=== PATIENT | female | born 1950 | race Caucasian/White ===

== ENCOUNTER → 2018-09-01 14:19 | Outpatient (CLI) | payer MEDICARE, SELFPAY ==
--- NOTE | 2018-09-01 14:23 | CT_ITS ---
CT lung screening EXAM: CT LUNG LOW DOSE WO CONTRAST HISTORY: ITS.REASON: TOBACCO USE ORDERING PHYSICIAN: Manasa Haines PATIENT AGE: 68 years COMPARISON: None TECHNIQUE: The exam was performed on a GE Light Speed [address] scanner using 2.90 mGy CTDI. A low dose helical CT CHEST was performed on a multi-detector scanner. All CT scans at the facility use one or more dose reduction, viz: automated exposure control, ma/kV adjustment per patient size (including targeted exams where dose is matched to indication, i.e. head), or iterative reconstruction technique. The LDCT was performed in a facility that meets the criteria for the screening program. Data regarding this exam was submitted to ACR which is an approved registry. The order for this exam indicates that it came as a result of a lung cancer screening counseling shard decision-making visit that included all the elements required of such a visit including smoking cessation. The radiologist interpreting this exam meets the CMS criteria for the LDCT lung cancer screening program. The exam is reported using the Lung-RADS classification scale and reported to the ACR registry. NOTE: This study was performed for the specific purposes of lung cancer screening and is not an alternative to diagnostic chest CT. RADIATION DOSE: CTDI vol(CT dose Index-volume) = 2.90mG DLP (Dose Length Product) = 115.68 mGcm FINDINGS: Changes of COPD with mild centrilobular emphysema. A hyperdense nodule present in the right perihilar region within the right upper lobe measuring 12 mm consistent with a granuloma partially calcified. A flat-like fissural nodule is present in the major fissure on the left 6 mm. Prior CABG. Minimal nodularity noted in the right perihilar region 7 mm possibly due to part of the unopacified overlying pulmonary vessel. There are some small nodes in the epigastric region and periportal area nonspecific IMPRESSION: 1. Lung RADS Category: 3, probably benign. Suggest 6 month follow-up with contrast regarding possible right perihilar nodule versus pulmonary artery 2. Other findings: COPD/centrilobular emphysema, old granulomatous disease, small nodes in the periportal region and epigastric area RECOMMENDATIONS: [address] chest without and with contrast follow-up
== END ==
PROVIDERS: PCP Nurse Practitioner Family; Visit Provider Nurse Practitioner Family
DX: Z12.2 Encounter for screening for malignant neoplasm of respiratory organs (principal); Z87.891 Personal history of nicotine dependence

== ENCOUNTER → 2018-09-08 09:01 | Outpatient (CLI) | payer MEDICARE, SELFPAY ==
--- NOTE | 2018-09-08 09:05 | MM_ITS ---
MM Dig screening mamm BI w/CAD CAD Screening COMPARISON: Digital mammograms with CAD 02/23/2014 and additional views right breast 03/23/2014 INDICATION: There is no personal or family history of breast cancer. There has been previous biopsy right breast for benign disease. TECHNIQUE: Standard CC and MLO images were obtained. R2 CAD reviewed. FINDINGS: Scattered fibroglandular densities are seen in both breasts. There is a mole marker right breast. There there are few benign-appearing microcalcifications right breast. There are stable tiny nodular benign-appearing densities upper outer quadrant left breast. There Is a stable benign-appearing density 12:00 position right breast. There is no suspicious lesion and there are no suspicious microcalcifications. IMPRESSION: Fibrofatty parenchyma with no suspicious lesion seen BI-RADS Category: 2 Benign Finding(s) RECOMMENDED FOLLOW-UP: 1YR - 1 YEAR FOLLOW-UP (A letter has been sent to the patient regarding results of the study.)
== END ==
PROVIDERS: PCP Nurse Practitioner Family; Visit Provider Nurse Practitioner Family
DX: Z12.31 Encounter for screening mammogram for malignant neoplasm of breast (principal)
CPT/HCPCS: 77067

== ENCOUNTER → 2019-03-20 09:27 | Outpatient (CLI) | payer MEDICARE, SELFPAY ==
[2019-03-20 10:01] LABS: Blood Urea Nitrogen 9 mg/dL (7-18); Creatinine,Serum 1.19 mg/dL (0.55-1.02); Estimated Glomerular Filt Rate 45 ml/min (>60); GFR (African American) 54 ML/MIN (>60)
--- NOTE | 2019-03-20 10:07 | CT_ITS ---
PROCEDURE: CT CHEST W CON CLINCAL INDICATION: ABNORMAL CT CHEST Follow-up abnormal screening CT, tobacco use, COPD/emphysema. COMPARISON: LUNGSCREEN CT lung screening from 09/01/2018 [facility] MM Dig screening mamm BI w/CAD from 09/08/2018 TECHNIQUE: IV Contrast: 75ml Optiray 350 Axial images obtained with sagittal and coronal reformats. All CT scans at the facility use one or more dose reduction, viz: automated exposure control, ma/kV adjustment per patient size (including targeted exams where dose is matched to indication, i.e. head), or iterative reconstruction technique. FINDINGS: There is a 1.5 cm hypodense nodule in the left lobe of the thyroid gland posteriorly. Ultrasound may provide further evaluation. There has been a prior CABG. Unremarkable aorta and pulmonary arteries. There is prominence of the left ventricular myocardium possibly related to systolic imaging. Left ventricular hypertrophy is also considered. No mediastinal or hilar mass or adenopathy. COPD with centrilobular emphysema. The previously noted right perihilar nodule is slightly smaller at 6 mm previously nearly 10 mm. The nodule all showed showed some hyperdensity previously which is not apparent on today's study. The margins of the nodule however are somewhat irregular and were previously smooth. Just medial to this nodule is an additional nodular opacity measuring 5 mm and could be due to small lymph node. Left-sided fissural nodules unchanged. No new nodules are evident. Upper abdominal images show some mildly prominent periportal lymph nodes measuring up to 2 x 1.8 cm and may be slightly smaller compared to the previous study. There is a nodular opacity in the upper aspect of the right breast measuring approximately 7 mm. Previous mammogram on the right demonstrated benign-appearing nodule in the 12 o'clock region which may correspond to this finding. IMPRESSION: 1. The previously noted partially calcified right perihilar nodule has changed and is slightly smaller with no calcification evident at this time. The margins of the nodule however are somewhat irregular. Suggest short-term CT follow-up in 3 months due to the change in appearance of the nodule. There is a small lymph node just medial to this region. 2. COPD with centrilobular emphysema 3. 1.5 cm left thyroid nodule. Consider ultrasound for further evaluation Dictated by: José Miguel Dickinson MD 03/20/2019 16:46 Electronically signed by José Miguel Dickinson MD in [place] 03/21/2019 07:07
== END ==
PROVIDERS: PCP Family Medicine; Visit Provider Nurse Practitioner
DX: R93.89 Abnormal findings on diagnostic imaging of other specified body structures (principal)
CPT/HCPCS: 36415; 71260; 82565; 84520; Q9967

== ENCOUNTER → 2019-03-31 13:47 | Outpatient (CLI) | payer MEDICARE, SELFPAY ==
--- NOTE | 2019-03-31 13:56 | US_ITS ---
PROCEDURE: US THYROID CLINICAL INDICATION: THYROID NODULE Follow-up thyroid nodule, abnormal CT COMPARISON: CT CHEST W CON from 03/20/2019 FINDINGS: The right lobe is 4.1 x 1.1 x 1.7 cm. There is a well-circumscribed 4 mm nodule in the upper pole, well-circumscribed 8 mm mostly hypoechoic nodule in the lower pole. The left lobe 4.2 x 1.8 x 1.7 cm. There is a well-circumscribed isoechoic nodule in the lower pole at 18 x 12 mm with central decreased echogenicity.. IMPRESSION: Bilateral thyroid nodules. The nodule in the lower pole on the left is a T rads level 3 less than 2.5 cm. Recommend six-month follow-up. Dictated by: José Miguel Dickinson MD 03/31/2019 16:05 Electronically signed by José Miguel Dickinson MD in [place] 03/31/2019 16:05
== END ==
PROVIDERS: PCP Family Medicine; Visit Provider Nurse Practitioner
DX: E04.1 Nontoxic single thyroid nodule (principal)
CPT/HCPCS: 76536

== ENCOUNTER 2020-03-02 21:29 | Observation (INO) | payer MEDICARE, SELFPAY ==
[2020-03-02 21:22] VITALS: BP 158/58; PULSE 65; RESP 22; O2SAT 94; BMI 27.4
--- NOTE | 2020-03-02 21:35 | ECG_ITS ---
APPROVED REPORT Exam: Resting ECG HR:61 bpm ECG Measurements Heart Rate 61 AXES VT 134 P 40 QRSd 118 QRS -7 QT 456 T 198 QTc 459 Conclusion Normal sinus rhythm Incomplete right bundle branch block ST & T wave abnormality, consider inferior ischemia ST & T wave abnormality, consider anterolateral ischemia Abnormal ECG Electronically signed by : Merlin Hardin, 03/03/2020 14:17:45
--- NOTE | 2020-03-02 21:36 | XR_ITS ---
PROCEDURE: XR CHEST PORTABLE Referring Doctor: Dilip Hebert Patient Age:69Y CLINICAL HISTORY: syncopal episode patient has had previous CABG and lumpectomy. Smoker. COMPARISON: CT CT CHEST W CON from 03/20/2019 FINDINGS: AP portable upright chest Lungs well expanded and clear with no active disease but borderline cardiomegaly. Sternotomy CABG. teletypesetter monitor leads are in place. Slight coarsening markings towards right lung base more so the left I believe is within normal limits and similar to previous studies no convincing pneumonia. No pneumothorax. No pleural effusion but chest wall unremarkable Normal pulmonary vascularity. The lungs are clear without infiltrates, suspicious nodules, or pleural effusions. No acute bony abnormalities. IMPRESSION: Nothing definitely acute Lungs appear clear. . CABG. Heart upper normal size Dictated by: Thee Sandoval MD 03/03/2020 21:12 Thee Sandoval MD in [place] 03/03/2020 21:12
[2020-03-02 21:49] LABS: Basophils # 0.1 K/mm3 (0-0.2); Basophils % 0.8 % (0.1-2.0); Eosinophils # 0.2 K/mm3 (0.0-0.4); Eosinophils % 1.8 % (0.1-12.0); Hematocrit 47.3 % (37.0-47.0); Hemoglobin 15.4 g/dL (12.2-16.2); Lymphocytes # 2.6 K/mm3 (0.7-4.5); Lymphocytes % 26.7 % (10-50); Mean Corpuscular HGB Conc 32.5 g/dL (31.8-35.4); Mean Corpuscular Hemoglobin 30.2 pg (27.0-31.2); Mean Corpuscular Volume 92.8 fl (81-99); Mean Platelet Volume 8.8 fl (7.4-10.4); Monocytes # 0.5 K/mm3 (0.1-1.0); Monocytes % 5.3 % (1.7-9.3); Neutrophils # 6.4 K/mm3 (1.8-7.8); Neutrophils % 65.5 % (37.0-80.0); Platelet Count 214 K/mm3 (142-424); Red Blood Count 5.09 M/mm3 (4.20-5.40); Red Cell Distribution Width 14.6 % (11.5-17.5); White Blood Count 9.7 K/mm3 (4.8-10.8)
[2020-03-02 21:57] VITALS: BP 169/66; PULSE 64; RESP 16; O2SAT 93
--- NOTE | 2020-03-02 22:07 | HMH.EDSYNC ---
ED Disposition Clinical Impression: Syncope Qualifiers: Syncope type: unspecified Qualified Code(s): R55 - Syncope and collapse Disposition: Admitted as Observation Condition on Discharge: Good - Critical Care Critical Care Time: No Attestation: On 03/02/20, the high probability of a clinically significant, sudden or life threatening deterioration of the following system(s) required my full and direct attention, intervention and personal management. The time I documented below is in addition to time spent performing reported procedures but includes the following listed in this critical care notation. Medical Decision Making - Medical Records Medical records reviewed: Yes: I reviewed the patient's medical records. - Ming Inquiry Pt receiving controlled substance: No Vital Signs: 03/02/20 21:22 03/02/20 21:57 03/02/20 22:45 Pulse Rate [Right Brachial] 65 64 67 Respiratory Rate 22 16 18 Blood Pressure [Right Arm] 158/58 H 169/66 H 161/65 H Blood Pressure Mean [Right Arm] 91 100 97 Blood Pressure Source [Right Arm] Automatic Cuff Blood Pressure Position [Right Arm] Sitting 02 Sat by Pulse Oximetry 94 L 93 L 96 Oxygen Delivery Method Room Air Room Air Room Air - Lab Data Lab results reviewed: Yes: I reviewed the patient's lab results. Lab Results 03/02/20 21:10: Sodium 140, Potassium 3.5, Chloride 104, Carbon Dioxide 27, Anion Gap 12.5, BUN 14, Creatinine 1.10 H, Estimated Creat Clear 58, Estimated GFR 49 L, Est GFR ( Amer) 59, Glucose 137 H, Calcium 9.7, Troponin I 0.03, NT-Pro-B Natriuret Pep 816 H 03/02/20 21:10: WBC 9.7, RBC 5.09, Hgb 15.4, Hct 47.3 H, MCV 92.8, MCH 30.2, MCHC 32.5, RDW 14.6, Plt Count 214, MPV 8.8, Neut % (Auto) 65.5, Lymph % (Auto) 26.7, [place] % (Auto) 5.3, Eos % (Auto) 1.8, Baso % (Auto) 0.8, Neut # (Auto) 6.4, Lymph # (Auto) 2.6, [place] # (Auto) 0.5, Eos # (Auto) 0.2, Baso # (Auto) 0.1 03/02/20 21:10: Total Bilirubin 0.6, Direct Bilirubin 0.3, Conjugated Bilirubin 0.0, Indirect Bilirubin 0.3, Unconjugated Bilirubin 0.3, AST 53 H, ALT 43, Alkaline Phosphatase 164 H, Total Protein 7.8, Albumin 4.4 03/02/20 21:10: SARS-CoV-2 IgG Ab (Rapid) Negative, SARS-CoV-2 IgM Ab (Rapid) Negative Result diagrams: 03/02/20 21:10 03/02/20 21:10 Orders (Tests/Meds): ED MEDICATIONS Generic Name Dose Route Start Last Admin Trade Name Freq PRN Reason Stop Dose Admin Sodium Chloride 1,000 mls @ 999 mls/hr 03/02/20 22:45 Sod Chlor 0.9% 1000ml Bag IV 03/02/20 23:45 .Q1H1M CLEMENTINE ORDERS Category Date Time Status XR chest portable Stat Exams 03/02/20 21:36 Taken Troponin I Q3H Lab 03/03/20 00:45 Ordered Troponin I Q3H Lab 03/03/20 03:45 Ordered UA [Urinalysis and Microscopic] Stat Lab 03/02/20 22:11 Ordered - Radiology Data #1 Image(s): Chest Image Reviewed: Yes I reviewed the patient's radiology image Preliminary Findings: Abnormal (cm) - ECG Data Tracing #1 Normal Sinus Rhythm: Yes Ischemic changes: non-specific ST-T wave changes, t wave inversions - Physician Consults Physician Consulted: chente Reason -: Admission - JAMES Score for Non-Stemi Age of Patient: 70-79 years old Heart Rate: 50-69 bpm Systolic Blood Pressure: 140-159 mmHg Serum Creatinine: 0.80-1.19 mg/dl CHF Killip Class: I-No CHF Other Risk Factors: None Non-Stemi Risk Score: 109 Syncope HPI - General Chief Complaint: Syncope Stated Complaint: SYNCOPE Time Seen by Provider: 03/02/20 21:45 Mode of Arrival: EMS Source of Information: Patient, EMS, Medical Record Limitations: No Limitations Description of Symptoms (Recalled from ER Triage Doc. by RN): PATIENT STATES SHE WAS AT A [place] E[place] TODAY WHEN SHE STARTED HAVING STOMACH CRAMPS. STATES SHE VOMITED AND AFTERWARD FELT BETTER. SHE THEN GOT UP AND WALKED OUTSIDE, SAT IN A CHAIR AND PASSED OUT. PATIENT STATES SOMEONE WITH HER SAID SHE WAS OUT FOR APPROX 5 MINUTES. SHE ALSO REPORTS THE DAY BEFORE SHE HAD PAIN IN BACK OF HER
[2020-03-02 22:12] LABS: Anion Gap 12.5 mEq/L (5-15); Blood Urea Nitrogen 14 mg/dl (7-17); Calcium 9.7 mg/dl (8.4-10.2); Carbon Dioxide 27 mmol/L (22.0-30.0); Chloride 104 mmol/L (98-107); Creatinine Clearance Estimated 58 mL/min (50-200); Estimated Glomerular Filt Rate 49 ml/min (>60); GFR (African American) 59 ML/MIN (>60); Glucose 137 mg/dl (74-100); Potassium 3.5 mmoL/L (3.5-5.1); Sodium 140 mmol/L (136-145)
[2020-03-02 22:21] LABS: Alanine Aminotransferase 43 U/L (12-78); Albumin Level 4.4 g/dl (3.5-5.0); Alkaline Phosphatase 164 U/L (38-126); Aspartate Amino Transferase 53 U/L (14-36); Bilirubin,Direct 0.3 mg/dl (0.0-0.4); Bilirubin,Indirect 0.3 mg/dL (0.0-0.9); Bilirubin,Total 0.6 mg/dl (0.2-1.3); Bilirubin,Unconjugated 0.3 mg/dL (0.0-1.1); Total Protein,Serum 7.8 g/dl (6.3-8.2)
[2020-03-02 22:25] LABS: NT Pro Brain Natriuretic Pep. 816 pg/mL (0-125); Troponin I 0.03 ng/ml (0.00-0.034)
[2020-03-02 22:35] LABS: Coronavirus 19 IgG Antibody Negative (Negative); Coronavirus 19 IgM Antibody Negative (Negative)
[2020-03-02 22:45] VITALS: BP 161/65; PULSE 67; RESP 18; O2SAT 96
[2020-03-02 23:15] VITALS: BP 169/69; PULSE 73; RESP 14; TEMP 36.6; O2SAT 95
--- NOTE | 2020-03-02 23:36 | PC.NURSE ---
PT ARRIVED TO THE FLOOR VIA W/C FROM ED W/STAFF AT [id number]
[2020-03-03] VITALS: BP 174/53; PULSE 80; PULSE 81; RESP 20; TEMP 36.6; O2SAT 96; BMI 22.8
[2020-03-03 00:40] VITALS: O2SAT 98
[2020-03-03 00:45] LABS: Microscopic, Urine URINE MICROSCOPIC (MICROSCOPIC)
[2020-03-03 01:07] LABS: Appearance,Urine CLEAR (Clear); Bilirubin,Urine Negative (Negative); Blood, Urine Negative (Negative); Color,Urine YELLOW (Yellow); Glucose,Urine (UA) Negative (Negative); Ketones,Urine Negative (Negative); Leukocyte Esterase,Urine Negative (Negative); Nitrate,Urine Negative (Negative); PH,Urine 6.5 (5.0-8.5); Protein,Urine Negative (Negative); Urobilinogen,Urine 0.2 EU/dl (0.2)
[2020-03-03 01:12] LABS: Amorphous Sediment,Urine Trace /lpf
[2020-03-03 01:20] LABS: Troponin I 0.02 ng/ml (0.00-0.034)
[2020-03-03 04:00] VITALS: BP 139/59; PULSE 60; PULSE 69; RESP 20; TEMP 36.5; O2SAT 90
[2020-03-03 04:20] LABS: Basophils # 0.1 K/mm3 (0-0.2); Basophils % 0.6 % (0.1-2.0); Eosinophils # 0.1 K/mm3 (0.0-0.4); Eosinophils % 0.7 % (0.1-12.0); Hematocrit 40.1 % (37.0-47.0); Lymphocytes # 1.6 K/mm3 (0.7-4.5); Lymphocytes % 16.9 % (10-50); Mean Corpuscular HGB Conc 32.7 g/dL (31.8-35.4); Mean Corpuscular Hemoglobin 30.1 pg (27.0-31.2); Mean Corpuscular Volume 91.9 fl (81-99); Mean Platelet Volume 8.1 fl (7.4-10.4); Monocytes # 0.4 K/mm3 (0.1-1.0); Monocytes % 4.4 % (1.7-9.3); Neutrophils # 7.1 K/mm3 (1.8-7.8); Neutrophils % 77.4 % (37.0-80.0); Platelet Count 180 K/mm3 (142-424); Red Blood Count 4.37 M/mm3 (4.20-5.40); Red Cell Distribution Width 14.5 % (11.5-17.5); White Blood Count 9.1 K/mm3 (4.8-10.8)
[2020-03-03 04:22] LABS: Hemoglobin 13.1 g/dL (12.2-16.2)
[2020-03-03 04:32] LABS: Anion Gap 8.4 mEq/L (5-15); Blood Urea Nitrogen 11 mg/dl (7-17); Carbon Dioxide 23 mmol/L (22.0-30.0); Chloride 113 mmol/L (98-107); Chol/HDL Ratio 6.1 (1-3.5); Cholesterol 232 mg/dl (140-200); Creatinine Clearance Estimated 50 mL/min (50-200); Estimated Glomerular Filt Rate 71 ml/min (>60); GFR (African American) 86 ML/MIN (>60); Glucose 112 mg/dl (74-100); HDL Cholesterol 38 mg/dl (40-60); Potassium 4.4 mmoL/L (3.5-5.1); Sodium 140 mmol/L (136-145); Triglycerides 132 mg/dl (30-150); VLDL Cholesterol 26 mg/dL (0-40)
[2020-03-03 04:42] LABS: Direct LDL Cholesterol 160.59 mg/dL (100-129)
[2020-03-03 04:43] LABS: Troponin I 0.02 ng/ml (0.00-0.034)
--- NOTE | 2020-03-03 04:43 | PC.NURSE ---
Pt is A&O x4. Lung sounds clear t/o, diminished lung sounds in right upper lobe. Pt has had no c/o dizziness or weakness. Pt requires standby assistance when ambulating to bathroom. Pt has been incontinent of bowels x1 this shift. Pt states it's from the food at the wedding earlier, I have diverticulitis this happens a lot Pt has urinated clear, yellow urine this shift. DNI paperwork signed and placed in pt's chart. Call light within reach. No other complaints or acute changes at this time. Will continue to monitor.
[2020-03-03 04:46] LABS: Calcium 8.6 mg/dl (8.4-10.2)
--- NOTE | 2020-03-03 07:40 | HMH.HPDC ---
General - General Admission date:: 03/02/20 Discharge date: 03/03/20 *Admission Date: 03/03/20 *Chief complaint: Syncope *History of present illness: 69-year-old female with history of coronary artery bypass grafting approximately 10 years ago presented to the emergency department after syncopal event. Patient went to a family wedding yesterday where she ate karen Maharaj. Almost immediately after finishing her meal she noticed onset of abdominal cramps which she states is fairly normal for her due to a history of diverticulosis. Patient went to her sister's house as she was afraid she was going to have an incontinence accident. Patient went to the bathroom and became diaphoretic and vomited in addition to having diarrhea. Patient felt like she needed some fresh air so she went outside and sat down where she lost consciousness. Patient sister believes the patient was unconscious for approximately 1 to 5 minutes. A neighbor was contacted to help get the patient to a car and she was brought to the emergency department. Patient had regained consciousness by the time she was in the emergency department. She also reported diaphoresis prior to her syncopal event. She denied chest pain, chest heaviness, neck pain, back pain, shortness of breath. Patient's work-up in the emergency department was significant only for a troponin of 0.03 as well as an EKG that showed diffuse T wave inversions. There is no prior EKG for comparison. Decision was made to keep the patient for monitoring of arrhythmia and rule out of [place]. [facility] History Medical History: Reports:: Coronary Artery Disease, Hypertension Denies:: Cancer, Diabetes Mellitus Type 1, Diabetes Mellitus Type 2, Internal Pacemaker, Lung Disease, MRSA, Seizures *Have you ever received a pneumonia vaccine?: Yes *Have you received a flu vaccine this season?: No Other Medical History: Denies: Blood Transfusion Reaction Other Surgeries: Yes: Cholecystectomy, Diagnostic Lap, Hysterectomy-Total. No: Pacemaker Amputation: No - *Social History Last grade of school completed: High school graduate Smoking Status: Current every day smoker Tobacco Type: cigarettes # Packs/Day (cigarettes): 1 Alcohol Intake: current Alcohol Intake Frequency:: holidays/special occasions only *Occupational Status:: retired *Travel in the last 8 weeks: None Family Hx:: Anemia, Cancer, Coronary Artery Disease, Diabetes, Stroke Review of Systems - Constitutional Denies anorexia, Denies body ache(s), Denies chills, Denies lack of energy - *Cardiovascular Denies chest pain, Denies chest pain at rest, Denies leg pain with activity, Denies excessive sweating, Denies shortness of breath with activity, Denies generalized swelling, Denies irregular heart rhythm - *Respiratory Denies change in phlegm color, Denies chest congestion, Denies cough - *Gastrointestinal Reports abdominal pain, Reports cramping, Reports loose stools, Denies belching, Denies bloating - *Genitourinary Denies painful urination - *Musculoskeletal Denies abnormal walking - Integumentary/Breasts Denies acne - *Neurologic Denies abnormal speech, Denies localized weakness, Denies headache(s), Denies seizure-like activity Exam Vital signs and Labs for Last 24 Hours: Temp Pulse Resp BP Pulse Ox 97.7 F 69 20 139/59 L 90 L 03/03/20 04:00 03/03/20 04:00 03/03/20 04:00 03/03/20 04:00 03/03/20 04:00 Laboratory Results - last 24 hr 03/02/20 21:10: Sodium 140, Potassium 3.5, Chloride 104, Carbon Dioxide 27, Anion Gap 12.5, BUN 14, Creatinine 1.10 H, Estimated Creat Clear 58, Estimated GFR 49 L, Est GFR ( Amer) 59, Glucose 137 H, Calcium 9.7, Troponin I 0.03, NT-Pro-B Natriuret Pep 816 H 03/02/20 21:10: WBC 9.7, RBC 5.09, Hgb 15.4, Hct 47.3 H, MCV 92.8, MCH 30.2, MCHC 32.5, RDW 14.6, Plt Count 214, MPV 8.8, Neut % (Auto) 65.5, Lymph % (Auto) 26.7, [place] % (Auto) 5.3, Eos % (Auto) 1.8, Baso % (Auto) 0.8, Neut # (Auto) 6.4, Lymph #
[2020-03-03 08:00] VITALS: BP 164/79; PULSE 80; PULSE 95; RESP 16; TEMP 36.6; O2SAT 95
--- NOTE | 2020-03-03 08:15 | P.CONPHA_ITS ---
[facility] Pharm[facility] VTE Monitoring - Patient Demographics Admission date: 03/02/20 Report Date: 03/03/20 Time: 08:15 Allergies/Adverse Reactions: Patient Allergies codeine [CODEINE] Allergy (Unknown, Verified 09/12/18 11:26) FACE SWELLING iodine [IODINE] Allergy (Unknown, Verified 09/12/18 11:26) I-RASH Height: 1.63 m Weight: 60.526 kg Patient Problems: Current Active Problems Syncope (Acute) Hypertension (Chronic) Cigarette smoker (Chronic) Hyperlipidemia (Chronic) Abdominal cramping (Acute) Diverticulosis, sigmoid (Chronic) - VTE Risk Labs: VTE Related Lab Results Hgb 13.1 g/dL (12.2-16.2) D 03/03/20 04:00 Hct 40.1 % (37.0-47.0) 03/03/20 04:00 Plt Count 180 K/mm3 (142-424) 03/03/20 04:00 BUN 11 mg/dl (7-17) 03/03/20 04:00 Creatinine 0.80 mg/dl (0.52-1.04) D 03/03/20 04:00 Estimated Creat Clear 50 mL/min (50-200) 03/03/20 04:00 - Prophylaxis VTE Prophylaxis Ordered?: Yes Types of VTE Prophylaxis: TEDS Knee High Location of Applied Device: Bilateral Lower Extremeties - VTE Diagnosis Confirmed Treatment or plan recommended: Continue Current Treatment
--- NOTE | 2020-03-03 09:26 | HMH.PHAINT ---
DISCHARGE COUNSELING COMPLETED ON PATIENT. TWO NEW PRESCRIPTIONS FOR LISINOPRIL AND SIMVASTATIN. BOTH WERE SENT TO [facility]. PATIENT VERBALIZED UNDERSTANDING AND HAD NO QUESTIONS AT THIS TIME. -RANDI ENGLISH, BRIAND
== END 2020-03-03 11:11 | disposition home or self-care (01) ==
LOC: ER 22:37 → 2ND 22:42
PROVIDERS: Admitting Provider Family Medicine; Emergency Provider Emergency Medicine; PCP Family Medicine; Visit Provider Family Medicine
DX: R55 Syncope and collapse (principal); K57.30 Diverticulosis of large intestine without perforation or abscess without bleeding; I25.10 Atherosclerotic heart disease of native coronary artery without angina pectoris; I10 Essential (primary) hypertension; E78.5 Hyperlipidemia, unspecified; Z72.0 Tobacco use; Z95.1 Presence of aortocoronary bypass graft; R06.9 Unspecified abnormalities of breathing; Z79.899 Other long term (current) drug therapy
CPT/HCPCS: 36415; 71045; 80048; 80061; 80076; 81001; 83735; 83880; 84484; 85025; 86328; 93005; 96365; 99284; G0378

== ENCOUNTER → 2020-08-16 09:16 | Outpatient (CLI) | payer MEDICARE, SELFPAY ==
--- NOTE | 2020-08-16 | CA_ITS ---
APPROVED REPORT EXAM: Comprehensive 2D, Doppler, and color-flow Echocardiogram Television Audio Engineer: Marilyn Blair RT(R) Ht: 5 ft 4 in Wt: 130lbs BSA: 1.63 BP: 164/79 mmHg Indications: MRSA, Seizures, CAD, HTN, DM, pacemaker 2D Dimensions LVOT 1.82 cm (M/F) 1.5-2.5 LVEF (Sommers's) 68.30 % F: 54 - 74 LV Volume 86.80 mL F: 46 - 106 LV Volume Index 53.25 mL/m2 F: 29 - 61 LA Volume 30.00 mL LA Volume Index 18.40 mL/m2 (M/F) 16-34 M-Mode Dimensions RVDd 2.00 cm (0.9-2.6) LA Diam 4.02 cm (1.9-4.0) LVDd 4.97 cm (3.5-5.7) Ao Diam 2.69 cm (2.0-3.7) LVDs 3.21 cm (3.5-5.7) IVSd 0.89 cm (0.6-1.1) PWd 0.89 cm (0.6-1.1) EF (Teich) 64.60% FS 35.40% EDV (Teich) 116.60 mL ESV (Teich) 41.30 mL LV Diastology E Decel Time 167.00 (160-240 msec) E/A Ratio 1.5 MED E' 6.60 (< 7 cm/sec) E'/MED E' Ratio 25.14 (>14) LAT E' 8.50 (<10 cm/sec) E/LAT E' Ratio 19.52 (>14) Aortic Valve LVOT Max 145.00 (70-110 cm/s) LVOT VTI 29.71 cm AoV Peak Eddie. 169.00 (50-130 cm/s) AI PHT 578.00 ms AO Peak GR. 11.50 mmHg AO Mean GR. 5.70 (<5 mmHg) AO VTI 32.59 (18-25 cm) NEO (VTI) 2.37 (2.5-4.5 cm2) Mitral Valve MV E Max Eddie. 166.00 (40-130 cm/s) MV A Velocity 110.00 (40-130 cm/s) E/A Ratio 1.51 MV Decel. Time 167.00 (160-240 ms) MV PHT 49.00 ms Left Ventricle Mildly enlarged, left ventricle is normal size, mild concentric left ventricular hypertrophy, visually estimated ejection fraction 55% with no regional wall motion abnormality, grade 2 diastolic dysfunction seen with tissue Doppler evidence of raise left atrial pressure. Right Ventricle Right atrium and right ventricle are normal size and contractility. There is a pacemaker lead seen right atrium and right ventricle. Aortic Valve Aortic valve is thickened and calcified leaflet chordae display good mobility, there is no aortic stenosis, there is mild aortic insufficiency. Mitral Valve Mitral valve leaflets are minimally thickened, there is mitral regurgitation present which is difficult to quantify, is likely in moderate range. There is no mitral stenosis. Tricuspid Valve Tricuspid valve grossly normal, there is mild tricuspid regurgitation, tricuspid regurgitation jet velocity is inadequate for calculation of the right ventricular systolic pressure. Pulmonic Valve Pulmonic valve is poorly visualized. Great Vessels Aortic root is normal size. Pericardium No significant pericardial effusion noted. Conclusion 1. Mildly enlarged left atrium, normal left ventricular size, mild concentric left ventricular hypertrophy, visually estimated ejection fraction 55% with no regional wall motion abnormality, grade 2 diastolic dysfunction seen with tissue Doppler evidence of raise left atrial pressure. 2. Thickened and calcified aortic valve with mild aortic insufficiency. 3. Moderate mitral and mild tricuspid regurgitation. 4. No significant pericardial effusion noted. Electronically signed by : Joaquin Baig, 08/16/2020 14:30:11
--- NOTE | 2020-08-16 | US_ITS ---
APPROVED REPORT Exam Type: Lower Extremity Segmental Pressures Perch Machine Inspector: Manasa Dubon RVT Indications Claudication: Bilaterally Rest Pain: Bilaterally Current Smoker CAD CLAUDICATION RADHA Risk Factors Hypertension CAD Hyperlipidemia Cardiac Disease Current Smoker Pressures/Indices Right Indices Left Indices Brachial 160.00 mmHg Brachial 150.00 mmHg Low Thigh 100.00 mmHg 0.63 Low Thigh 154.00 mmHg 0.96 Calf 88.00 mmHg 0.55 Calf 146.00 mmHg 0.91 Ankle(PT) 85.00 mmHg 0.53 Ankle(PT) 148.00 mmHg 0.93 Ankle(DP) 82.00 mmHg 0.51 Ankle(DP) 136.00 mmHg 0.85 Digit 56.00 mmHg 0.35 Digit 95.00 mmHg 0.59 Findings RT KARINA:0.5 LT KARINA:0.93 RT TBI:0.35 LT TBI:0.59 DAMPANED WAVEFORMS ON THE RIGHT DAMPENED PULSES ON THE RIGHT Conclusion RT KARINA:0.5 LT KARINA:0.93 RT TBI:0.35 LT TBI:0.59 DAMPANED WAVEFORMS ON THE RIGHT DAMPENED PULSES ON THE RIGHT MODERATE RIGHT ARTERIAL DISEASE Critical Notification Physician Notified Date: 08/16/2020 Time: 10:02 Physician Name: Ashley SOLARES OFFICE Electronically signed by : José Miguel Dickinson MD 08/16/2020 16:22:40
== END ==
PROVIDERS: PCP Family Medicine; Visit Provider Family Medicine
DX: I70.213 Atherosclerosis of native arteries of extremities with intermittent claudication, bilateral legs (principal); I25.10 Atherosclerotic heart disease of native coronary artery without angina pectoris; R60.0 Localized edema; F17.210 Nicotine dependence, cigarettes, uncomplicated
CPT/HCPCS: 93306; 93923

== ENCOUNTER → 2021-11-01 10:39 | Outpatient (CLI) | payer MEDICARE, SELFPAY | PROVIDERS: Visit Provider Ophthalmology | DX: Z01.812 Encounter for preprocedural laboratory examination (principal); Z20.822 Contact with and (suspected) exposure to COVID-19 | CPT/HCPCS: C9803; U0003; U0005 ==

== ENCOUNTER 2021-11-04 06:36 | Day surgery (SDC) | payer MEDICARE, SELFPAY ==
[2021-10-31 15:05] VITALS: BMI 22.3
[2021-11-04 07:54] VITALS: BP 172/74; PULSE 70; RESP 16; TEMP 36.6; O2SAT 98
[2021-11-04 09:01] VITALS: BP 189/84; PULSE 66; RESP 16; O2SAT 98
[2021-11-04 09:06] VITALS: BP 181/74; PULSE 67; RESP 16; O2SAT 96
[2021-11-04 09:11] VITALS: BP 163/77; PULSE 64; RESP 16; O2SAT 100
[2021-11-04 09:16] VITALS: BP 168/79; PULSE 64; RESP 16; O2SAT 100
[2021-11-04 09:17] VITALS: BP 156/80; PULSE 70; RESP 16; TEMP 36.5; O2SAT 97
== END 2021-11-04 09:41 | disposition home or self-care (01) ==
LOC: OR 06:38
PROVIDERS: PCP Family Medicine; Visit Provider Ophthalmology
DX: H26.9 Unspecified cataract (principal); I10 Essential (primary) hypertension; E78.00 Pure hypercholesterolemia, unspecified
CPT/HCPCS: 66984; V2632

== ENCOUNTER → 2021-11-15 10:20 | Outpatient (CLI) | payer MEDICARE, SELFPAY | PROVIDERS: PCP Nurse Practitioner Family; Visit Provider Ophthalmology | DX: Z01.812 Encounter for preprocedural laboratory examination (principal); Z20.822 Contact with and (suspected) exposure to COVID-19 | CPT/HCPCS: C9803; U0003; U0005 ==

== ENCOUNTER 2021-11-18 08:13 | Day surgery (SDC) | payer MEDICARE, SELFPAY ==
[2021-11-13 13:43] VITALS: BMI 22.1
[2021-11-18] VITALS (7 sets, daily range): BP systolic 159–182; BP diastolic 69–82; PULSE 66–74; RESP 18–20; TEMP 36.6–36.7; O2SAT 94–98
== END 2021-11-18 09:55 | disposition home or self-care (01) ==
LOC: OR 08:15
PROVIDERS: PCP Family Medicine; Visit Provider Ophthalmology
DX: H26.9 Unspecified cataract (principal); I10 Essential (primary) hypertension; E78.00 Pure hypercholesterolemia, unspecified
CPT/HCPCS: 66984; V2632

== ENCOUNTER → 2022-01-30 08:45 | Outpatient (CLI) | payer MEDICARE, SELFPAY ==
--- NOTE | 2022-01-30 08:46 | CA_ITS ---
FINAL REPORT TECHNIQUE: Duplex color Doppler with spectral analysis performed of the lower extremity. CLINICAL HISTORY: claudication in right calf, HTN, HLD, DM, hx of CABG, smoker. FINDINGS: RIGHT LOWER EXTREMITY: Velocities cm/sec: BUSINESS CONTINUITY COORDINATOR: 73 SFA Mid: 102 SFA Dist: 69 CIGAR HEAD HOLER proximal: 11 CIGAR HEAD HOLER Mid: 10 CIGAR HEAD HOLER distal: 10 EMMA Mid: 15 Peroneal proximal: 22 Peroneal mid: 21 Peroneal distal: 20 Waveforms are monophasic throughout. Plaque is seen in the mid femoral artery. There is occlusion of the distal femoral artery with reconstitution in the popliteal artery. 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 These findings were called to Dr. Busch by the cardiology technologist. Reviewed, Interpreted and Dictated by Gallo Kang III, MD Transcribed by Delmar Gandhi Authenticated and [facility]
--- NOTE | 2022-01-30 09:57 | XR_ITS ---
FINAL REPORT CLINICAL HISTORY: low back pain with radiation into right leg FINDINGS: LEFT HIP Two views of the left hip including an AP pelvis demonstrate no acute fracture or dislocation. There are mild degenerative changes in both hips. The visualized bony structures are well aligned. There are vascular calcifications. IMPRESSION: Mild degenerative change with no acute bony abnormality. Reviewed, Interpreted and Dictated by Gallo Kang III, MD Transcribed by Haether Barajas Authenticated and [facility]
--- NOTE | 2022-01-30 09:57 | XR_ITS ---
FINAL REPORT CLINICAL HISTORY: low back pain with radiation into right leg FINDINGS: LUMBAR SPINE Three views were obtained. There is no acute fracture. There is no malalignment. There is mild rightward curvature. There are mild and moderate degenerative changes with osteophytes. There is facet arthropathy in the lower lumbar spine. There are vascular calcifications. IMPRESSION: Mild and moderate degenerative changes as described. Reviewed, Interpreted and Dictated by Gallo Kang III, MD Transcribed by Heather Barajas Authenticated and [facility]
--- NOTE | 2022-01-30 09:59 | XR_ITS ---
FINAL REPORT CLINICAL HISTORY: LOWER LEG PAIN FINDINGS: RIGHT HIP Two views of the right hip demonstrate no acute fracture or dislocation. There are mild degenerative changes. The visualized bony structures are well aligned. No soft tissue abnormality is seen. IMPRESSION: Mild degenerative change with no acute bony abnormality. Reviewed, Interpreted and Dictated by Gallo Kang III, MD Transcribed by Heather Barajas Authenticated and [facility]
[2022-01-30 10:27] LABS: Basophils # 0.1 K/mm3 (0-0.2); Eosinophils # 0.1 K/mm3 (0.0-0.4); Eosinophils % 1.1 % (0.1-12.0); Hematocrit 42.4 % (37.0-47.0); Hemoglobin 13.9 g/dL (12.2-16.2); Lymphocytes # 1.7 K/mm3 (0.7-4.5); Mean Corpuscular HGB Conc 32.7 g/dL (31.8-35.4); Mean Corpuscular Hemoglobin 31.4 pg (27.0-31.2); Mean Corpuscular Volume 96.1 fl (81-99); Mean Platelet Volume 9.3 fl (7.4-10.4); Monocytes # 0.4 K/mm3 (0.1-1.0); Monocytes % 5.7 % (1.7-9.3); Neutrophils # 5.1 K/mm3 (1.8-7.8); Neutrophils % 69.3 % (37.0-80.0); Platelet Count 210 K/mm3 (142-424); Red Blood Count 4.41 M/mm3 (4.20-5.40); Red Cell Distribution Width 15.1 % (11.5-17.5); White Blood Count 7.4 K/mm3 (4.8-10.8)
[2022-01-30 11:09] LABS: Alanine Aminotransferase 20 U/L (12-78); Albumin Level 3.9 g/dl (3.5-5.0); Albumin/Globulin Ratio 1.6 (1.1-1.8); Alkaline Phosphatase 101 U/L (38-126); Anion Gap 7.9 mEq/L (5-15); Aspartate Amino Transferase 36 U/L (14-36); Bilirubin,Total 0.3 mg/dl (0.2-1.3); Blood Urea Nitrogen 9 mg/dl (7-17); Calcium 8.7 mg/dl (8.4-10.2); Carbon Dioxide 28 mmol/L (22.0-30.0); Chloride 109 mmol/L (98-107); Chol/HDL Ratio 3.9 (1-3.5); Cholesterol 169 mg/dl (140-200); Estimated Glomerular Filt Rate 55 ml/min (>60); GFR (African American) 66 ML/MIN (>60); Globulin 2.4 g/dL (1.3-3.2); Glucose 87 mg/dl (74-100); HDL Cholesterol 43 mg/dl (40-60); Potassium 3.9 mmoL/L (3.5-5.1); Sodium 141 mmol/L (136-145); Total Protein,Serum 6.3 g/dl (6.3-8.2); Triglycerides 187 mg/dl (30-150); VLDL Cholesterol 37 mg/dL (0-40)
[2022-01-30 11:40] LABS: Thyroid Stimulating Hormone 2.15 uIU/mL (0.465-4.68)
== END ==
PROVIDERS: PCP Family Medicine; Visit Provider Family Medicine
DX: I73.9 Peripheral vascular disease, unspecified (principal); M79.604 Pain in right leg; R55 Syncope and collapse; I10 Essential (primary) hypertension; E78.5 Hyperlipidemia, unspecified; M54.50 Low back pain, unspecified
CPT/HCPCS: 36415; 72100; 73502; 80053; 80061; 84443; 85025; 93926

== ENCOUNTER → 2022-02-11 11:40 | Outpatient (CLI) | payer MEDICARE, SELFPAY ==
--- NOTE | 2022-02-11 | CA_ITS ---
APPROVED REPORT Exam: Pharmacologic Technologist: Shawna Noyola, Ht: 5 ft 4 in Wt: 138 lbs BSA: 1.67 m2 HR: 59 bpm BP: 164/54 mmHg Rhythm: NSR, RBBB, LVH, DIFFUSE ST-T ABNS Indications: CP, ABN EKG Medical History Medical History: HTN, Hyperlipidemia Medications: Lisinopril,,,,, RoSUVASTATIN,,,,, Allergies: CODEINE, IODINE Cardiac Risk Factors: HTN, Hyperlipidemia, FHX of CAD, Smoking Stress Test Details Test: LEXISCAN HR Resting HR: 60 bpm Max Heart Rate (APMHR): 148.182845 bpm Max HR Achieved: 85 bpm Target HR (85% APMHR): 125.472449 bpm % of APMHR: 57.43 Recovery HR: 72 bpm BP Resting BP: 164/54 mmHg Max BP: 164/54 mmHg Recovery BP: 158.0/48.0 mmHg ECG Resting ECG: NSR, RBBB, LVH, DIFFUSE ST-T ABNS Clinical Exercise duration: 04:03 min Highest Stage Achieved: Exercise capacity: 1.0 METs Stress ECG Conclusion PT HAD SOA, HEAD DISCOMFORT. NO CP. MILD EXAGGERATION OF BASELINE ABNS NON-DIAGNOSTIC LEXISCAN STRESS. MYOVIEW IMAGES REPORTED SEPARATELY. Test Summary REST 05:19 . . 60 . 164/ 54 . . Stage 1 01:00 . . 81 . . . . Stage 2 01:00 . . 83 . 142/ 58 . . Stage 3 01:00 . . 77 . 155/ 66 . . Stage 4 01:00 . . 78 . . . . Stage 4 01:03 . . 79 . . . Stop exercise at 04:03 RECOVERY 01:00 . . 72 . 156/ 57 . . RECOVERY 02:00 . . 79 . 156/ 57 . . RECOVERY 03:00 . . 71 . 158/ 48 . . RECOVERY 03:32 . . 69 . 158/ 48 . . Electronically signed by : Joaquin Baig MD 02/12/2022 06:26:39
--- NOTE | 2022-02-11 11:40 | NM_ITS ---
APPROVED REPORT Exam: Nuclear Stress Test Indication: short of breath Patient Location: Outpatient Stress Tech: Shawna Noyola MS Tech:RUTH ANN Brooks RT(R)(N) Ht: 5 ft 4 in Wt: 138 lbs Bra Size: b HR: 60 bpm BP: 164/54 mmHg BSA: 1.67 m2 TID: 1.04 BMI: 23.6 History: short of breath Procedure: Patient received a 0.4 mg of intravenous Lexiscan, resting heart rate 60 bpm, resting blood pressure 164/54 mmHg, with Lexiscan maximum heart rate achived was 85 bpm which is Less than 85 % of the maximum predicted heart rate and blood pressure was 164/54 mmHg. With Lexiscan, patient denied any complaint of chest pain. Electrocardiogram Resting electrocardiogram shows sinus rhythm, nonspecific ST-T changes, with Lexiscan there is less than 1.[address] segment depression noted from the baseline EKG. The EKG portion of the Lexiscan is nondiagnostic. Cardiac Stress and Resting SPECT Images: Cardiac Stress and Resting SPECT images were obtained using technetium 99m Myoview 31.3 mCi stress and 10.37 mCi at rest. Gated SPECT for analysis of segmental wall motion and calculation of the ejection fraction also done. Prone images were also obtained. Cardiac stress and rest SPECT images show inferolateral reversible ischemia, computer derived ejection fraction is over 65% with no regional wall motion abnormality, right ventricle is normal size and contractility. Conclusion: 1. The EKG portion of the Lexiscan is nondiagnostic. 2. Scintigraphic evidence of reversible ischemia involving the inferolateral wall, computer derived ejection fraction is over 65% with no regional wall motion abnormality, right ventricle is normal size and contractility. 3. Abnormal Lexiscan Myoview study. Electronically signed by : Joaquin Baig MD 02/12/2022 06:31:22
--- NOTE | 2022-02-11 11:50 | CA_ITS ---
APPROVED REPORT EXAM: Comprehensive 2D, Doppler, and color-flow Echocardiogram Tree Killer: Fiorella Shepard RDCS Ht: 5 ft 4 in Wt: 138lbs BSA: 1.67 BP: 126/53 mmHg Indications: Abnormal ECG, Chest Pain, CAD, Hyperlipidemia, Hypertension/HDD, smoker, cabg 2D Dimensions LVOT 1.71 cm (M/F) 1.5-2.5 M-Mode Dimensions RVDd 1.72 cm (0.9-2.6) LA Diam 3.70 cm (1.9-4.0) LVDd 5.21 cm (3.5-5.7) Ao Diam 3.13 cm (2.0-3.7) LVDs 2.93 cm (3.5-5.7) IVSd 1.51 cm (0.6-1.1) PWd 0.87 cm (0.6-1.1) EF (Teich) 74.60% FS 43.80% EDV (Teich) 130.10 mL ESV (Teich) 33.00 mL LV Diastology E Decel Time 233.00 (160-240 msec) E/A Ratio 0.96 MED E' 4.30 (< 7 cm/sec) E'/MED E' Ratio 25.88 (>14) LAT E' 6.30 (<10 cm/sec) E/LAT E' Ratio 17.67 (>14) Aortic Valve AI PHT 428.00 ms Mitral Valve MV E Max Eddie. 111.00 (40-130 cm/s) MV A Velocity 117.00 (40-130 cm/s) E/A Ratio 0.96 MV Decel. Time 233.00 (160-240 ms) MV PHT 68.00 ms Left Ventricle Left atrium is moderately enlarged, left ventricle is normal size mild concentric left ventricular hypertrophy, estimated ejection fraction 55% with no regional wall motion abnormality, grade 2 diastolic dysfunction seen with tissue Doppler evidence of raise left atrial pressure. Right Ventricle Right atrium and right ventricle are mildly enlarged with normal contractility. Aortic Valve Aortic valve is thickened and calcified without aortic stenosis, there is mild aortic insufficiency. Mitral Valve Mitral valve leaflets have degenerative changes present both anterior posterior mitral leaflet, posterior mitral leaflet is little redundant, there is no mitral stenosis, there is mitral regurgitation present which is likely in severe range. Tricuspid Valve Tricuspid valve grossly normal, there is mild tricuspid regurgitation, tricuspid regurgitation jet velocity is inadequate for calculation of the right ventricular systolic pressure. Pulmonic Valve Pulmonic valve is poorly visualized. Great Vessels Aortic root is normal size. Inferior vena cava is dilated without significant inspiratory collapse. Pericardium No significant pericardial effusion noted. Conclusion 1. Moderately enlarged left atrium, normal left ventricular size, mild concentric left ventricular hypertrophy, estimated ejection fraction 55% with no obvious regional wall motion abnormality, grade 2 diastolic dysfunction seen with tissue Doppler evidence of atrial atrial pressure. 2. Abnormal mitral valve as described above, likely severe mitral regurgitation, if clinically indicated transesophageal echocardiogram is recommended. 3. Mild aortic and tricuspid regurgitation. 4. No significant pericardial effusion. 5. Inferior vena cava is mildly dilated without significant inspiratory collapse. Electronically signed by : Joaquin Baig MD 02/12/2022 06:05:23
--- NOTE | 2022-02-11 11:50 | CA_ITS ---
FINAL REPORT CLINICAL HISTORY: abnormal ekg, carotid bruit, exsmoker, htn FINDINGS: An ultrasound of the carotid arteries was performed. Duplex Doppler evaluation with spectral analysis was performed. The peak systolic velocity of the right common carotid artery is 119 cm/s. The peak systolic velocity of the right internal carotid artery is 117 cm/s and end diastolic velocity 28 cm/s. A moderate amount of plaque is present at the proximal ICA. The right external carotid artery is patent. The right vertebral artery is patent with antegrade flow. ICA/CCA ratio: 1.03 The peak systolic velocity of the left common carotid artery is 126 cm/s. The peak systolic velocity of the left internal carotid artery is 74 cm/s and end diastolic velocity 17 cm/s. A small amount of plaque is present. The left external carotid artery is patent. The left vertebral artery is patent with antegrade flow. ICA/CCA ratio: 0.75 Bilateral patent vertebral arteries with antegrade flow. Note is made of bilateral thyroid nodules measuring up to 17 mm in the left lobe. These are incompletely characterized. IMPRESSION: Less than 50% carotid stenosis bilaterally. Incidental note of bilateral thyroid nodules. Recommend dedicated thyroid ultrasound. Reviewed, Interpreted and Dictated by Reinier Kelley MD Transcribed by Delmar Gandhi Authenticated and [facility]
== END ==
PROVIDERS: PCP Family Medicine; Visit Provider Physician Assistant
DX: Z95.1 Presence of aortocoronary bypass graft (principal); R55 Syncope and collapse
CPT/HCPCS: 78452; 93017; 93306; 93880; A9502; J2785

== ENCOUNTER → 2022-02-28 10:16 | Outpatient (CLI) | payer MEDICARE, SELFPAY ==
[2022-02-28 11:23] LABS: Basophils # 0.1 K/mm3 (0-0.2); Basophils % 1.2 % (0.1-2.0); Eosinophils # 0.1 K/mm3 (0.0-0.4); Eosinophils % 1.7 % (0.1-12.0); Hematocrit 42.3 % (37.0-47.0); Hemoglobin 13.6 g/dL (12.2-16.2); Lymphocytes # 1.5 K/mm3 (0.7-4.5); Mean Corpuscular HGB Conc 32.1 g/dL (31.8-35.4); Mean Corpuscular Hemoglobin 31.3 pg (27.0-31.2); Mean Corpuscular Volume 97.6 fl (81-99); Mean Platelet Volume 9.3 fl (7.4-10.4); Monocytes # 0.3 K/mm3 (0.1-1.0); Monocytes % 5.4 % (1.7-9.3); Neutrophils # 4.4 K/mm3 (1.8-7.8); Neutrophils % 68.6 % (37.0-80.0); Platelet Count 217 K/mm3 (142-424); Red Blood Count 4.33 M/mm3 (4.20-5.40); Red Cell Distribution Width 14.9 % (11.5-17.5); White Blood Count 6.3 K/mm3 (4.8-10.8)
[2022-02-28 13:16] LABS: Chloride 105 mmol/L (98-107); Potassium 4.3 mmoL/L (3.5-5.1); Sodium 142 mmol/L (136-145)
[2022-02-28 13:19] LABS: Blood Urea Nitrogen 9 mg/dl (7-17); Estimated Glomerular Filt Rate 62 ml/min (>60); GFR (African American) 74 ML/MIN (>60)
[2022-02-28 13:20] LABS: Anion Gap 14.3 mEq/L (5-15); Calcium 8.9 mg/dl (8.4-10.2); Carbon Dioxide 27 mmol/L (22.0-30.0); Glucose 89 mg/dl (74-100)
== END ==
PROVIDERS: PCP Family Medicine; Visit Provider Physician Assistant
DX: E78.5 Hyperlipidemia, unspecified (principal); F17.210 Nicotine dependence, cigarettes, uncomplicated; I10 Essential (primary) hypertension; I25.10 Atherosclerotic heart disease of native coronary artery without angina pectoris; I34.0 Nonrheumatic mitral (valve) insufficiency; I35.1 Nonrheumatic aortic (valve) insufficiency; I45.10 Unspecified right bundle-branch block; I73.9 Peripheral vascular disease, unspecified; R09.89 Other specified symptoms and signs involving the circulatory and respiratory systems; R68.89 Other general symptoms and signs; R94.30 Abnormal result of cardiovascular function study, unspecified; R94.31 Abnormal electrocardiogram [ECG] [EKG]; Z95.1 Presence of aortocoronary bypass graft; Z01.812 Encounter for preprocedural laboratory examination; Z20.822 Contact with and (suspected) exposure to COVID-19
CPT/HCPCS: 36415; 80048; 85025; C9803; U0003; U0005

== ENCOUNTER 2022-03-02 08:49 | Day surgery (SDC) | payer MEDICARE, SELFPAY ==
[2022-03-02] VITALS (11 sets, daily range): BP systolic 143–178; BP diastolic 59–74; PULSE 60–69; RESP 16–20; TEMP 36.6; O2SAT 91–100; BMI 23.1
--- NOTE | 2022-03-02 | IR_ITS ---
APPROVED REPORT Patient Location: Outpatient Plastics Spreading Machine Operator: RUTH ANN Godoy RT (R) PROCEDURES Left heart catheterization Left ventriculogram Selective coronary angiogram Left internal mammary angiography Selective engagement of saphenous vein graft to the right coronary Catheter placed in the distal abdominal aorta Distal abdominal aortography Bilateral iliofemoral runoff INDICATION Coronary artery disease, Angina pectoris, Abnormal Myoview, History of coronary bypass surgery, [place] claudication class III Informed consent was obtained prior to the procedure. COMPLICATIONS none Estimated Blood Loss: less than 10 ml TECHNIQUE One percent lidocaine used to anesthetize the left groin. The left femoral artery was accessed via the Seldinger technique and a 5 Lao sheath was placed in the right femoral artery. A JL 4, JR4 catheter were used to perform left heart catheterization, left ventriculogram selective coronary angiography as well as selective engagement of the 1 vein grafts and the left internal mammary artery. At the end the diagnostic angiogram pigtail catheter was placed in the distal abdominal aorta and distal abdominal aortography was performed. The catheter was then repositioned and bilateral iliofemoral runoff was performed. At the end of the procedure the apparatus was removed patient was transferred to the postop putting in stable condition for sheath removal ANGIOGRAPHIC RESULTS The left main artery Normal The left anterior descending artery Has proximal 20% stenoses accompanied by a mid vessel myocardial bridge which compresses to 90%. A large first diagonal artery is equal and actually larger in size in the LAD itself and is widely patent free of disease The circumflex artery Is a nondominant vessel gives rise to a medium sized first obtuse marginal artery which has 20% stenoses. The mid circumflex artery is then occluded and a small terminal obtuse marginal artery fills via [id number] collaterals The right coronary artery Is a dominant vessel and has mild proximal and mid vessel 20 to 30% stenoses The GATES ventriculogram reveals Normal 65% The left ventricular end-diastolic pressure 10 mmHg BROWN to LAD is occluded Saphenous vein graft right coronary artery ostially occluded Distal abdominal aorta is patent bilateral common internal and external iliac arteries are patent. Bilateral common femoral arteries are patent Bilateral profunda femoris arteries are patent Right superficial femoral artery is ostially occluded and eventually fills at the popliteal level via dense collateral network. There is scant one-vessel runoff below the knee on the right Left superficial femoral artery is patent with moderate 40% mid vessel to distal stenoses. Left popliteal artery is patent the anterior tibialis artery and peroneal artery appear to be patent in the proximal segment however full visualization was not assessed going into the left IMPRESSION Coronary artery disease as described above most notably with a chronically occluded nondominant circumflex artery/obtuse marginal artery which fills via left to left collaterals Normal ejection fraction Normal left ventricular end-diastolic pressure Myocardial bridge Occluded BROWN and occluded saphenous vein graft PLAN 1. Medical management for coronary artery disease. Patient is completely revascularized and does not require stenting of the mid LAD 2. Medical management for peripheral artery disease 3. Risk factor modification Electronically signed by : Pee Padron MD 03/05/2022 14:28:44
== END 2022-03-02 15:19 | disposition home or self-care (01) ==
PROVIDERS: PCP Family Medicine; Visit Provider Internal Medicine
DX: E78.5 Hyperlipidemia, unspecified (principal); F17.210 Nicotine dependence, cigarettes, uncomplicated; I10 Essential (primary) hypertension; I25.118 Atherosclerotic heart disease of native coronary artery with other forms of angina pectoris; I34.0 Nonrheumatic mitral (valve) insufficiency; I35.1 Nonrheumatic aortic (valve) insufficiency; I45.10 Unspecified right bundle-branch block; I70.213 Atherosclerosis of native arteries of extremities with intermittent claudication, bilateral legs; R94.31 Abnormal electrocardiogram [ECG] [EKG]; Z95.1 Presence of aortocoronary bypass graft; I25.82 Chronic total occlusion of coronary artery
CPT/HCPCS: 36246; 75625; 75716; 93459; 99152; 99153; C1725; C1769; C1894; J1644; Q9966; Q9967

== ENCOUNTER → 2022-03-31 09:37 | Outpatient (POV) | payer MEDICARE, SELFPAY | PROVIDERS: Visit Provider Dermatology | DX: Z00.00 Encounter for general adult medical examination without abnormal findings (principal) ==

== ENCOUNTER → 2022-04-24 12:36 | Outpatient (CLI) | payer MEDICARE, SELFPAY ==
[2022-04-24 18:41] LABS: Basophils # 0.1 K/mm3 (0-0.2); Basophils % 0.8 % (0.1-2.0); Eosinophils # 0.1 K/mm3 (0.0-0.4); Eosinophils % 0.7 % (0.1-12.0); Hematocrit 27.8 % (37.0-47.0); Hemoglobin 9.1 g/dL (12.2-16.2); Lymphocytes # 2.2 K/mm3 (0.7-4.5); Mean Corpuscular HGB Conc 32.8 g/dL (31.8-35.4); Mean Corpuscular Hemoglobin 31.8 pg (27.0-31.2); Mean Corpuscular Volume 96.8 fl (81-99); Mean Platelet Volume 10.1 fl (7.4-10.4); Monocytes # 0.3 K/mm3 (0.1-1.0); Monocytes % 2.9 % (1.7-9.3); Neutrophils # 5.9 K/mm3 (1.8-7.8); Neutrophils % 69.6 % (37.0-80.0); Platelet Count 238 K/mm3 (142-424); Red Blood Count 2.87 M/mm3 (4.20-5.40); Red Cell Distribution Width 15.9 % (11.5-17.5); White Blood Count 8.5 K/mm3 (4.8-10.8)
[2022-04-24 19:05] LABS: Chloride 109 mmol/L (98-107); Sodium 140 mmol/L (136-145)
[2022-04-24 19:08] LABS: Alanine Aminotransferase 15 U/L (12-78); Albumin Level 3.7 g/dl (3.5-5.0); Albumin/Globulin Ratio 1.8 (1.1-1.8); Alkaline Phosphatase 93 U/L (38-126); Aspartate Amino Transferase 27 U/L (14-36); Bilirubin,Total 0.2 mg/dl (0.2-1.3); Blood Urea Nitrogen 25 mg/dl (7-17); Carbon Dioxide 25 mmol/L (22.0-30.0); Estimated Glomerular Filt Rate 61 ml/min (>60); GFR (African American) 74 ML/MIN (>60); Globulin 2.1 g/dL (1.3-3.2); Glucose 93 mg/dl (74-100); Total Protein,Serum 5.8 g/dl (6.3-8.2)
== END ==
PROVIDERS: PCP Nurse Practitioner Family; Visit Provider Nurse Practitioner Family
DX: R53.83 Other fatigue (principal)
CPT/HCPCS: 80053; 85025

== ENCOUNTER → 2022-06-17 19:46 | Outpatient (CLI) | payer MEDICARE, SELFPAY ==
[2022-06-17 20:42] LABS: Anion Gap 11.9 mEq/L (5-15); Blood Urea Nitrogen 11 mg/dl (7-17); Calcium 8.6 mg/dl (8.4-10.2); Carbon Dioxide 24 mmol/L (22.0-30.0); Chloride 109 mmol/L (98-107); Estimated Glomerular Filt Rate 61 ml/min (>60); GFR (African American) 74 ML/MIN (>60); Glucose 127 mg/dl (74-100); Potassium 3.9 mmoL/L (3.5-5.1); Sodium 141 mmol/L (136-145)
[2022-06-17 20:47] LABS: Basophils # 0.1 K/mm3 (0-0.2); Eosinophils # 0.1 K/mm3 (0.0-0.4); Eosinophils % 1.1 % (0.1-12.0); Hematocrit 34.8 % (37.0-47.0); Hemoglobin 10.6 g/dL (12.2-16.2); Lymphocytes # 1.9 K/mm3 (0.7-4.5); Lymphocytes % 26.6 % (10-50); Mean Corpuscular HGB Conc 30.6 g/dL (31.8-35.4); Mean Corpuscular Hemoglobin 24.4 pg (27.0-31.2); Mean Corpuscular Volume 79.7 fl (81-99); Mean Platelet Volume 11.3 fl (7.4-10.4); Monocytes # 0.5 K/mm3 (0.1-1.0); Neutrophils # 4.6 K/mm3 (1.8-7.8); Neutrophils % 64.4 % (37.0-80.0); Platelet Count 261 K/mm3 (142-424); Red Blood Count 4.36 M/mm3 (4.20-5.40); Red Cell Distribution Width 19.4 % (11.5-17.5); White Blood Count 7.2 K/mm3 (4.8-10.8)
== END ==
PROVIDERS: PCP Family Medicine; Visit Provider Family Medicine
DX: D64.9 Anemia, unspecified (principal); K92.1 Melena; R59.9 Enlarged lymph nodes, unspecified
CPT/HCPCS: 80048; 85025

== ENCOUNTER → 2022-06-18 08:30 | Outpatient (CLI) | payer MEDICARE, SELFPAY ==
--- NOTE | 2022-06-18 08:31 | CT_ITS ---
FINAL REPORT TECHNIQUE: Axial CT of the abdomen and pelvis, without and with IV contrast. CLINICAL HISTORY: anemia; melena; incomplete colonoscopy black tarry stools FINDINGS: Abdomen: There is a tiny right and small left pleural effusion. There is mild upper abdominal adenopathy within the lesser omentum and corry hepatis. The largest is a portocaval lymph node measuring 20 x 15 mm seen on image 36. The liver, spleen, pancreas and adrenal glands are unremarkable. Precontrast imaging shows no renal stone disease. There is a left renal cyst. The right kidney is unremarkable. No bowel obstruction or fluid collection is seen. Pelvis: The appendix is normal. There is questionable wall thickening circumferentially versus poor distension of the proximal ascending colon. This is best seen on coronal image 26 of series 610. The wall thickening measures up to 7 mm and occurs just superior to the ileocecal junction. There is minimal diverticular disease in the distal colon. Patient is status post hysterectomy. IMPRESSION: 1.Questionable wall thickening of the proximal ascending colon versus poor distension. 2. Nonspecific upper abdominal adenopathy. Recommend CT follow-up in 6 months for continued surveillance. 3. Nonspecific small pleural effusions. Reviewed, Interpreted and Dictated by Lillian Arriaga MD Transcribed by Heather Barajas Authenticated and [facility]
--- NOTE | 2022-06-18 08:31 | CT_ITS ---
FINAL REPORT TECHNIQUE: The patient was injected with IV contrast. Axial images were obtained of the chest by computed tomography. Precontrast images were also obtained. This study was performed with techniques to keep radiation doses as low as reasonably achievable (ALARA). Individualized dose reduction techniques using automated exposure control or adjustment of mA and/or kV according to the patient's size were employed. CLINICAL HISTORY: anemia; melena, black tarry stools COMPARISON: 03/20/2019 FINDINGS: CT OF THE CHEST WITH AND WITHOUT CONTRAST: There is a mass in the posterior left thyroid measuring 1.9 cm, minimally increased from the prior study. There is no axillary adenopathy. There is no mediastinal or hilar adenopathy. Heart size is normal. There is no pericardial effusion identified. There is a right perihilar nodule seen on image 34 measuring up to 8 mm which is unchanged. This is better seen on coronal image 28 series 607. There is mild emphysema. There are small left and tiny right pleural effusions. IMPRESSION: Minimal pleural effusions. No evidence of metastatic disease or acute pneumonia. Mild interval enlargement of nonspecific left thyroid mass. Reviewed, Interpreted and Dictated by Lillian Arriaga MD Transcribed by Rufina Gaona Authenticated and [facility]
== END ==
PROVIDERS: PCP Family Medicine; Visit Provider Family Medicine
DX: D64.9 Anemia, unspecified (principal); K92.1 Melena
CPT/HCPCS: 71270; 74178; Q9967

== ENCOUNTER → 2022-07-02 23:49 | Outpatient (CLI) | payer MEDICARE, SELFPAY ==
[2022-07-02 18:58] LABS: Basophils % 0.7 % (0.1-2.0); Eosinophils # 0.1 K/mm3 (0.0-0.4); Hematocrit 37.9 % (37.0-47.0); Hemoglobin 11.4 g/dL (12.2-16.2); Lymphocytes # 1.6 K/mm3 (0.7-4.5); Lymphocytes % 24.5 % (10-50); Mean Corpuscular HGB Conc 30.1 g/dL (31.8-35.4); Mean Corpuscular Hemoglobin 23.5 pg (27.0-31.2); Mean Platelet Volume 10.5 fl (7.4-10.4); Monocytes # 0.3 K/mm3 (0.1-1.0); Monocytes % 5.2 % (1.7-9.3); Neutrophils # 4.6 K/mm3 (1.8-7.8); Neutrophils % 68.6 % (37.0-80.0); Platelet Count 293 K/mm3 (142-424); Red Blood Count 4.86 M/mm3 (4.20-5.40); Red Cell Distribution Width 19.7 % (11.5-17.5); White Blood Count 6.6 K/mm3 (4.8-10.8)
== END ==
PROVIDERS: PCP Family Medicine; Visit Provider Family Medicine
DX: F32.A Depression, unspecified (principal)
CPT/HCPCS: 85025

== ENCOUNTER → 2022-09-25 16:50 | Outpatient (CLI) | payer MEDICARE, SELFPAY | PROVIDERS: PCP Nurse Practitioner Family; Visit Provider Nurse Practitioner Family | DX: R30.0 Dysuria (principal); B95.4 Other streptococcus as the cause of diseases classified elsewhere | CPT/HCPCS: 87086; 87088; 87186 ==

== ENCOUNTER → 2023-04-27 14:56 | Outpatient (CLI) | payer MEDICARE, SELFPAY ==
--- NOTE | 2023-04-27 14:57 | CA_ITS ---
APPROVED REPORT EXAM: Comprehensive 2D, Doppler, and color-flow Echocardiogram Speech Language Therapist: Manasa Dubon RVT Ht: 5 ft 4 in Wt: 132lbs BSA: 1.64 BP: 123/45 mmHg Indications: CAD,CABG,HTN,HLD,MR TDS-PT UNABLE TO MOVE LT SHOULDER 2D Dimensions LA Volume 69.30 mL LA Volume Index 42.26 mL/m2 (M/F) 16-34 M-Mode Dimensions RVDd 1.81 cm (0.9-2.6) LA Diam 4.70 cm (1.9-4.0) LVDd 4.61 cm (3.5-5.7) LVDs 3.05 cm (3.5-5.7) IVSd 1.12 cm (0.6-1.1) PWd 0.40 cm (0.6-1.1) EF (Teich) 62.80% FS 33.80% EDV (Teich) 97.80 mL TAPSE 2.77 (<1.7) ESV (Teich) 36.40 mL LV Diastology E Decel Time 227 (160-240 msec) E/A Ratio 1.0 Aortic Valve NEO Index 1.32 cm2/m2 AoV Peak Eddie. 209.0 (50-130 cm/s) AI PHT 635.00 ms AO Peak GR. 17.50 mmHg AO Mean GR. 8.60 (<5 mmHg) AO VTI 37.0 (18-25 cm) NEO (VTI) 2.21 (2.5-4.5 cm2) Mitral Valve MV E Max Eddie. 128.0 (40-130 cm/s) MV A Velocity 128.0 (40-130 cm/s) E/A Ratio 1.00 MV Mean Gr. 4.80 (<2mmHg) MV PHT 66.0 ms Pulmonary Valve PV Peak Velocity 150.0 (50-150 cm/s) Left Ventricle The left ventricle is normal size. The left ventricular systolic function is normal. The left ventricular ejection fraction is within the normal range. There is marked increase in LV wall thickness (IVSd 1.4 cm). There is no evidence of LVOT gradient at rest or with Valsalva. There is normal LV segmental wall motion. Transmitral Doppler flow pattern suggests impaired LV relaxation. LVEF is 60%. Right Ventricle The right ventricle is normal size. The right ventricular systolic function is normal. Atria The left atrium is moderately dilated. The right atrium size is normal. There is no Doppler evidence of interatrial shunt. Aortic Valve The aortic valve is mildly thickened. There is no aortic valvular stenosis. Mild aortic regurgitation. Mitral Valve The mitral valve leaflets are mildly thickened. There is no evidence of systolic anterior motion of the mitral valve leaflets. No evidence of mitral valve stenosis. At least moderate mitral regurgitation was present. The MR jet is very eccentric and posteriorly directed. The MR jet may be underestimated on TTE. Tricuspid Valve The tricuspid valve leaflets are thin and pliable. Trace tricuspid regurgitation. There is insufficient TR jet to estimate RVSP. Pulmonic Valve The pulmonary valve is normal in structure. There is trace pulmonic valvular regurgitation. Great Vessels The aortic root is normal in size. The ascending aorta is normal in size. IVC is normal in size and collapses >50% with inspiration. Pericardium There is a small sized, anterior pericardial effusion. The largest pocket measures 0.5 cm in diastole. No echo indications of tamponade. Other Information Study Quality: Technically Difficult Conclusion Technically difficult study due to poor acoustic windows. Normal biventricular systolic function. Marked increase in LV wall thickness (IVSd 1.4 cm). Mild AI. At least moderate mitral regurgitation. The MR jet is very eccentric and posteriorly directed. The MR jet may be underestimated. Further evaluation for infiltrative diseases is recommended (including PYP scan and cardiac MRI [amyloidosis protocol] in the setting of increased LV wall thickness. If clinically indicated, KEVEN is suggested to evaluate the true severity of the MR. Electronically signed by : Catherine Rosas MD 05/01/2023 00:27:01
== END ==
LOC: RT 14:57
PROVIDERS: PCP Nurse Practitioner Family; Visit Provider Physician Assistant
DX: E78.5 Hyperlipidemia, unspecified (principal); F17.210 Nicotine dependence, cigarettes, uncomplicated; I10 Essential (primary) hypertension; I25.10 Atherosclerotic heart disease of native coronary artery without angina pectoris; I34.0 Nonrheumatic mitral (valve) insufficiency; I35.1 Nonrheumatic aortic (valve) insufficiency; I45.10 Unspecified right bundle-branch block; I73.9 Peripheral vascular disease, unspecified; R06.00 Dyspnea, unspecified; R09.89 Other specified symptoms and signs involving the circulatory and respiratory systems; R94.31 Abnormal electrocardiogram [ECG] [EKG]; Z95.1 Presence of aortocoronary bypass graft
CPT/HCPCS: 93306

== ENCOUNTER 2023-04-28 08:08 | Day surgery (SDC) | payer MEDICARE, SELFPAY ==
[2023-04-28] VITALS (14 sets, daily range): BP systolic 140–189; BP diastolic 63–96; PULSE 67–86; RESP 16–18; TEMP 37.1; O2SAT 90–100; BMI 22.6
--- NOTE | 2023-04-28 07:07 | IR_ITS ---
APPROVED REPORT Patient Location: Outpatient Nat Instructor: RUTH ANN Tovar RT (R) PROCEDURES Catheter placed in the abdominal aorta Abdominal aortography Repositioning the catheter in the abdominal aorta Bilateral iliofemoral runoff Left selective renal angiogram Bare-metal stent deployment to the ostial proximal left renal artery INDICATION Peripheral artery disease, [place] claudication class III, Renal artery stenosis, Renovascular hypertension Informed consent was obtained prior to the procedure. COMPLICATIONS None Estimated Blood Loss: Less than10 mls TECHNIQUE 1% lidocaine used to anesthetize the left femoral groin. The left femoral artery was accessed via the Seldinger technique. A 5 Rwandan sheath is placed in the left femoral artery. Using fluoroscopic guidance a pigtail catheter was advanced to the abdominal aorta and abdominal aortography was performed. The catheter was then repositioned and bilateral iliofemoral runoff was performed. Following this the 5 Rwandan sheath was exchanged for a 6 Rwandan sheath and therapeutic heparin was administered giving a therapeutic ACT. A 6 Rwandan BROWN catheter was used to intubate the left renal artery and perform angiography. A BMW wire was placed distal to the stenosis and a 6 mm x 18 mm Herculink stent was placed in the ostial proximal segment at 18 jonnie reducing the stenosis to 0%. Excellent angiographic results were obtained. At the end the procedure the apparatus was removed the groin is reprepped closure change sheath was removed and hemostasis was achieved using Perclose device patient was transferred to the postop holding in stable condition ANGIOGRAPHIC RESULTS Right renal artery singular and has a proximal calcified 40 to 50% stenosis Left renal artery singular and has a proximal eccentric 70% calcified stenosis Infrarenal abdominal aorta is calcified with 30% stenosis. Bilateral common iliac arteries are calcified with 10 to 20% stenoses. The bilateral internal and external iliac arteries are patent. Bilateral common femoral arteries are patent. Bilateral profunda femoris arteries are patent Right superficial femoral artery is ostially occluded and occluded throughout its entire course. The vessel reconstitutes at the pregeniculate popliteal level distal to Judah's canal. The PT trunk is patent as is the proximal right anterior tibialis artery. Distally the anterior tibialis artery is occluded and then collateralizes the posterior tibialis artery. The right peroneal artery provides slow flow and to the right ankle. The right posterior tibialis artery is occluded Left superficial femoral artery is patent throughout its entire course and has diffuse 30% stenoses. The left popliteal artery is patent. The left anterior tibialis artery left posterior tibialis artery and left peroneal artery are proximally patent. There is two-vessel runoff below the knee left IMPRESSION Severe left renal artery stenosis and moderate right renal artery stenosis Successful stenting the left renal artery severe disease reduced to 0% with 1 bare-metal balloon mounted stent Occluded right SFA and right proximal to mid popliteal artery Peripheral artery disease as described above PLAN 1. Xarelto 2.5 twice daily plus aspirin 81 mg daily 2. Patient will be referred for femoropopliteal consideration. There is no nipple on the right superficial femoral artery therefore I do not recommend trying to percutaneously open this chronically occluded vessel. Patient may benefit from a femoropopliteal or physical therapy in order to promote collateralization 3. LDL less than 55 to be achieved high intensity statin 4. Risk factor modification Electronically signed by : Pee Padron MD 04/28/2023 11:45:58
[2023-04-28 08:57] LABS: Basophils % 0.4 % (0.1-2.0); Eosinophils # 0.1 K/mm3 (0.0-0.4); Eosinophils % 1.1 % (0.1-12.0); Hematocrit 34.1 % (37.0-47.0); Hemoglobin 10.5 g/dL (12.2-16.2); Lymphocytes # 1.7 K/mm3 (0.7-4.5); Lymphocytes % 23.1 % (10-50); Mean Corpuscular HGB Conc 30.9 g/dL (31.8-35.4); Mean Corpuscular Hemoglobin 20.8 pg (27.0-31.2); Mean Corpuscular Volume 67.5 fl (81-99); Mean Platelet Volume 9.3 fl (7.4-10.4); Monocytes # 0.5 K/mm3 (0.1-1.0); Monocytes % 6.7 % (1.7-9.3); Neutrophils # 4.9 K/mm3 (1.8-7.8); Neutrophils % 68.7 % (37.0-80.0); Platelet Count 248 K/mm3 (142-424); Red Blood Count 5.05 M/mm3 (4.20-5.40); Red Cell Distribution Width 18.8 % (11.5-17.5); White Blood Count 7.1 K/mm3 (4.8-10.8)
[2023-04-28 09:03] LABS: Chloride 109 mmol/L (98-107); Potassium 3.6 mmoL/L (3.5-5.1); Sodium 140 mmol/L (136-145)
[2023-04-28 09:06] LABS: Anion Gap 10.6 mEq/L (5-15); Blood Urea Nitrogen 8 mg/dl (7-17); Calcium 8.8 mg/dl (8.4-10.2); Carbon Dioxide 24 mmol/L (22.0-30.0); Creatinine Clearance Estimated 47 mL/min (50-200); Estimated Glomerular Filt Rate 54 ml/min (>60); GFR (African American) 66 ML/MIN (>60); Glucose 100 mg/dl (74-100)
[2023-04-28] MEDS: LIDOCAINE 1% 10ML MDV 20 ML IJ (10:57)
[2023-04-28] MEDS: diphenhydrAMINE 50MG/ML VIAL 50 MG IV (10:58)
[2023-04-28] MEDS: FAMOTIDINE 20MG/2ML VIAL 20 MG IV (10:58)
[2023-04-28] MEDS: METHYLPREDNISOLONE SOD SUCC 125MG VIAL 125 MG IV (10:58)
[2023-04-28] MEDS: HEPARIN 1,000 UNITS/ML 10ML VIAL (CATH LAB) 10000 UNIT IV (11:25)
[2023-04-28] MEDS: FENTANYL 100MCG/2ML VIAL 50 MCG IV (11:32)
[2023-04-28] MEDS: MIDAZOLAM HCL 1MG/1ML 5ML VIAL 1 MG IV (11:32)
[2023-04-28] MEDS: IOHEXOL-240 100ML BOTTLE 170 ML IV (15:22)
[2023-04-28 15:34] LABS: CATHL Activated Clotting Time 294 SEC (74-125)
== END 2023-04-28 14:23 | disposition home or self-care (01) ==
PROVIDERS: PCP Nurse Practitioner Family; Visit Provider Internal Medicine
DX: E78.5 Hyperlipidemia, unspecified (principal); F17.210 Nicotine dependence, cigarettes, uncomplicated; I10 Essential (primary) hypertension; I25.10 Atherosclerotic heart disease of native coronary artery without angina pectoris; I34.0 Nonrheumatic mitral (valve) insufficiency; I35.1 Nonrheumatic aortic (valve) insufficiency; I45.10 Unspecified right bundle-branch block; R06.00 Dyspnea, unspecified; R09.89 Other specified symptoms and signs involving the circulatory and respiratory systems; R94.31 Abnormal electrocardiogram [ECG] [EKG]; Z95.1 Presence of aortocoronary bypass graft; I77.1 Stricture of artery; I70.1 Atherosclerosis of renal artery; Z79.899 Other long term (current) drug therapy; I70.223 Atherosclerosis of native arteries of extremities with rest pain, bilateral legs
CPT/HCPCS: 37236; 80048; 85025; 85347; 99152; C1725; C1760; C1769; C1876; C1887; C1894; J1644; Q9966

== ENCOUNTER 2024-03-17 09:17 | Day surgery (SDC) | payer MEDICARE, SELFPAY ==
[2024-03-17 09:29] VITALS: BMI 22.3
[2024-03-17 09:34] VITALS: BP 168/73; PULSE 83; RESP 18; TEMP 36.6; O2SAT 98
[2024-03-17] MEDS: LIDOCAINE 1% W/EPI 1:100,000 20ML VIAL 20 ML (10:02)
[2024-03-17 10:35] VITALS: BP 127/92; PULSE 75; RESP 16; TEMP 36.6; O2SAT 95
--- NOTE | 2024-03-17 10:37 | P.OP_ITS ---
Date of procedure: 03/17/24 Pre-op Diagnosis:: Skin cancer left supraclavicular neck area Post-op Diagnosis:: Same Procedure performed:: Excision of skin cancer from left supraclavicular neck area (excisional length for centimeters) with intermediate complexity closure Surgeon:: Gallo Penn MD Anesthesia: local Estimated blood loss (mL): 4 Clinical Note:: Patient is a 73-year-old female from [place]. She was referred by Dr. Busch for a lesion on the left neck supraclavicular area. 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 She was then sent for definitive surgical excision. Patient also states that she has multiple keratosis like lesions and there is an area on her lower back which is irritating. Consideration was initially being given for possible excision as a local MAC type procedure. However after anesthesia evaluation was recommended she undergo cardiology evaluation given her history. For this reason plan was made to proceed with merely excision of the biopsy-proven squamous cell carcinoma under local anesthesia only at this time. Operative findings:: Residual scar from prior punch biopsy Operative note:: Consent was obtained. She was maintained on the stretcher. Area was prepped and draped. Lesion was marked with a skin marker for planned 5 mm margins. Skin was then marked for planned elliptical excision which measured about 4 cm with 5 mm margins medially and laterally. Local anesthetic was infiltrated. Full-thickness skin incision was made. Skin ellipse was then dissected free from the underlying subcutaneous tissues using electrocautery. The lesion was placed on the back table and marked for orientation. At this time hemostasis was achieved with electrocautery. Deep dermal tissues were reapproximated with interrupted 3-0 Vicryl. Skin was closed with interrupted simple 4-0 nylon sutures with a single 4-0 nylon vertical mattress suture. Clean dry sterile dressing was applied. The lesion was marked with a long suture for the lateral margin and a short suture for the anterior margin. Condition: stable Disposition: PACU Complications:: None immediately apparent
== END 2024-03-17 10:52 | disposition home or self-care (01) ==
PROVIDERS: PCP Family Medicine; Visit Provider Surgery
PROC: (CPT 11623; principal; 2024-03-17 10:30)
DX: C44.40 Unspecified malignant neoplasm of skin of scalp and neck (principal)
CPT/HCPCS: 11623; 12042